=== PATIENT | male | born 2000 | race Caucasian/White ===

== ENCOUNTER 2021-01-31 01:01 | Emergency (ER) | payer SELFPAY ==
[~2021-01-31] VITALS: Ht 177.8 cm; Wt 115.7 kg
[~2021-01-31 01:01] MED LIST: CODACEE120 PO; FLOR; LORA10ER; MULTCH; RXCODACESY PO; SILSUL1TC TOP
== END 2021-01-31 01:40 | disposition home or self-care (01) ==
LOC: ER 01:01
DX: J02.9 Acute pharyngitis, unspecified (principal); R51.9 Headache, unspecified; Z20.822 Contact with and (suspected) exposure to COVID-19
CPT/HCPCS: 99282